=== PATIENT | female | born 1935 | race Caucasian/White ===

== ENCOUNTER 2024-09-16 11:45 | Emergency (ER) | payer MEDICARE, SELFPAY ==
--- NOTE | ~2024-09-16 | XR_ITS ---
EXAMINATION: XR chest 1V DATE: 09/16/2024 12:15 INDICATION: Stroke TECHNIQUE: frontal view of the chest was obtained. COMPARISON: None FINDINGS: Small lung volumes. No focal airspace opacities, pulmonary edema, pleural effusion or pneumothorax. T he cardiomediastinal silhouette is normal. Dual lead pacemaker seen with leads projecting over the ex pected locations of the right atrium and right ventricle. Thoracolumbar levoscoliosis with moderate s pondylosis. 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 IMPRESSION: 1. Small lung volumes. No acute cardiopulmonary disease. Reviewed, dictated and finalized at location A.
--- NOTE | ~2024-09-16 | CT_ITS ---
EXAMINATION: CT brain wo con DATE: 09/16/2024 12:12 INDICATION: Sudden onset right eye vision loss and weakness TECHNIQUE: Computed tomography (CT) of the head was performed without intravenous contrast. Sagittal and coronal reconstructions were performed. The mA was adjusted according to patient size. Iterative reconstruction technique was employed. The dose-length product was 605.33 mGy-cm. COMPARISON: None FINDINGS: No acute intracranial hemorrhage, acute infarction or abnormal extra axial fluid collection. There is extensive scattered white matter hypoattenuation consistent with chronic small vessel ischemic disea se. Symmetric prominence of the sulci, ventricles and subarachnoid spaces overlying the convexities c onsistent with moderate age-appropriate diffuse cerebral volume loss. No mass/mass effect. Changes of bilateral intraocular lens replacement. The orbits, paranasal sinuses and mastoid air cells are norm al. IMPRESSION: 1. No acute intracranial process. 2. Age-related changes including moderate diffuse volume loss and extensive scattered white matter hy poattenuation consistent with chronic small vessel ischemic disease. Reviewed, dictated and finalized at location A. IMPRESSION: 1. No acute intracranial process. 2. Age-related changes including moderate diffuse volume loss and extensive sca ttered white matter hypoattenuation consistent with chronic small vessel ischem ic disease.
--- NOTE | ~2024-09-16 | CT_ITS ---
EXAMINATION: CTA BRAIN/CAROTID DATE: 09/16/2024 12:14 INDICATION: Stroke with sudden onset right eye vision loss and right-sided weakness. TECHNIQUE: Computed tomographic angiography (CTA) of the head and neck was performed with 100 mL Omni paque-350 intravenous contrast. Multiplanar reconstructions and maximum intensity projection 3D-recon structions of the carotid arteries and of the intracranial arteries were created by the technologist on a separate workstation. Automated exposure control and iterative reconstruction technique were emp loyed.The dose-length product was 883.45 mGy-cm. COMPARISON: None. FINDINGS: Carotid arteries: Small amount of nonhemodynamically significant atherosclerotic plaque along the normal caliber aortic arch and great vessels arising from the arch. There is atherosclerotic plaque with 0% stenosis of th e right carotid bulb relative to normal distal artery lumen diameter (NASCET criteria). There is no e vident atherosclerotic plaque with 0% stenosis of the left carotid bulb relative to normal distal art travis lumen diameter. Bilateral intracranial vertebral arteries are codominant with moderate, 50-70% st enosis at the origin of the right vertebral artery. Calcified nodule in the left upper lobe consisten t with old granulomatous disease. 5 mm noncalcified nodule and mild atelectasis in the right upper lo be. Mild upper thoracic dextrocurvature, 4 mm anterolisthesis C7 on T1 and moderate to severe cervica l and upper thoracic spondylosis. Intracranial arteries Vertebral arteries are codominant. Scattered nonhemodynamically significant atherosclerotic plaque al wyatt the bilateral carotid siphons. There is no hemodynamically significant stenosis in the vertebral, basilar and internal carotid arteries. Both A1 and P1 segments are patent. There are no aneurysms id entified. Cerebral arterial arborization appears symmetric. No abnormally enhancing brain lesions id entified. IMPRESSION: 1. 0% stenosis of the right left carotid bulbs relative to normal distal artery lumen diameter (NASCE T criteria). 2. Moderate 50-70% stenosis at the origin of the right vertebral artery.. 3. Unremarkable cerebral CT angiogram with no hemodynamically significant stenosis, thrombosis or ane urysm. 4. 5 mm right upper lobe nodule. If the patient is low risk for lung cancer, no follow-up is needed. If the patient is high risk (i.e., history of smoking or asbestos or significant radiation exposure), optional follow-up chest CT could be considered at 12 months. Reviewed, dictated and finalized at location A. IMPRESSION: 1. 0% stenosis of the right left carotid bulbs relative to normal distal artery lumen diameter (NASCET criteria). 2. Moderate 50-70% stenosis at the origin of the right vertebral artery.. 3. Unremarkable cerebral CT angiogram with no hemodynamically significant steno sis, thrombosis or aneurysm. 4. 5 mm right upper lobe nodule. If the patient is low risk for lung cancer, no follow-up is needed. If the patient is high risk (i.e., history of smoking or asbestos or significant radiation exposure), optional follow-up chest CT could be considered at 12 months.
--- NOTE | 2024-09-16 11:51 | ECG_ITS ---
Test Date: 2024-09-16 12:57:29 Measurements Intervals [place] Rate: 71 P: 249 NC: 178 QRS: -46 QRSD: 110 T: 79 QT: 402 QTc: 440 Interpretive Statements ELECTRONIC ATRIAL PACEMAKER LEFT AXIS DEVIATION INTRAVENTRICULAR CONDUCTION DELAY LEFT VENTRICULAR HYPERTROPHY AND ST-T CHANGE INFERIOR INFARCT, AGE INDETERMINATE ABNORMAL ECG No previous ECG available for comparison Electronically Signed On 09-16-2024 15:14:15 CDT by Reilly Almaguer D.O.
[2024-09-16 11:54] LABS: Glucose Point of Care 132 mg/dl (65-105)
[2024-09-16 12:05] LABS: Basophils Absolute Auto 0.1 K/mm3 (0.0-0.1); Basophils Percent Auto 1.1 % (0.2-1.2); Eosinophils Absolute Auto 0.2 K/mm3 (0-0.3); Eosinophils Percent Auto 2.1 % (0-4.4); Hematocrit 49.3 % (37.0-47.0); Hemoglobin 15.2 g/dL (12.0-15.0); Immature Granulocyte Absolute 0.07 K/mm3 (0.00-0.031); Immature Granulocyte Percent A 0.8 % (0-0.5); Lymphocytes Absolute Auto 1.63 K/mm3 (0.9-3.2); Lymphocytes Percent Auto 19.1 % (18.3-44.2); Mean Corpuscular HGB Conc 30.8 g/dl (32-36); Mean Corpuscular Hemoglobin 28.3 pg (26-34); Mean Corpuscular Volume 91.6 fl (80-100); Mean Platelet Volume 10.2 fl (7.4-10.4); Monocytes Absolute Auto 0.4 K/mm3 (0.1-0.6); Monocytes Percent Auto 4.8 % (2.6-8.5); Neutrophils Absolute Auto 6.2 K/mm3 (1.3-6.7); Neutrophils Percent Auto 72.1 % (45.5-73.1); Platelet Count Result 163 k/mm3 (150-375); Red Blood Count 5.38 M/mm3 (4.2-5.4); Red Cell Distribution Width 13.5 % (11.5-14.5); White Blood Count 8.6 K/mm3 (4.5-10.0)
[2024-09-16 12:12] LABS: Estimated Glomerular Filt Rate 39
[2024-09-16 12:28] LABS: Alanine Aminotransferase 13 U/L (6-35); Albumin Level 3.9 g/dL (3.5-5.1); Alkaline Phosphatase 96 U/L (38-126); Anion Gap 10 mmol/L (4-12); Aspartate Amino Transferase 21 U/L (14-36); Bilirubin,Total 0.5 mg/dL (0.2-1.3); Blood Urea Nitrogen 17 mg/dL (7-17); Calcium 10.2 mg/dL (8.4-10.2); Carbon Dioxide 23 mmol/L (22-30); Chloride 104 mmol/L (98-107); Estimated Glomerular Filt Rate 42; Glucose 125 mg/dL (65-110); Potassium 3.8 mmol/L (3.4-5.0); Sodium 137 mmol/L (137-145); Total Protein 6.3 g/dL (6.3-8.2)
[2024-09-16 12:35] LABS: Prothrombin Time 13.6 Seconds (11.1-14.7)
[2024-09-16 12:36] LABS: Partial Thromboplastin Time 26.6 Seconds (22.3-36.8)
[2024-09-16 12:45] LABS: Troponin I < 0.012 ng/mL (0.000-0.034)
[2024-09-16 12:58] VITALS: BP 154/73; PULSE 71; RESP 17; O2SAT 96
--- NOTE | 2024-09-16 13:58 | ED.GENADULT ---
HPI - General Adult General Chief complaint: Eye Problems Stated complaint: Vision Changes start at 10am Time Seen by Provider: 09/16/24 11:56 History of Present Illness HPI narrative: This is a 88-year-old female with history of macular degeneration in for sudden vision loss in her right eye. Patient says that at 10:00 a.m. she lost all vision in her right eye. 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 She did have some given this occurred but she is currently pain-free. Patient denies any other complaints at this time such as slurred speech, difficulty speaking or weakness to any extremity. Related Data Allergies Allergy/AdvReac Type Severity Reaction Status Date / Time Sulfa (Sulfonamide Allergy Unknown Verified 04/09/16 16:32 Antibiotics) MOST PAIN MED Allergy Unknown Uncoded 04/09/16 16:32 TAPE AdvReac Unknown Uncoded 04/09/16 16:32 Exam Narrative: APPEARANCE: No apparent distress. Head: atraumatic. EYES: Extraocular eye movements intact, IOP 17 bilaterally, fluorescein stain negative for corneal abrasion or Avi sign Visual acuity: Blind in the left eye, movement in the right eye NOSE: Atraumatic NECK: Trachea midline RESPIRATORY: No increased rate of breathing CTAB CARDIOVASCULAR: RRR, ABDOMINAL: Non-distended MUSCULOSKELETAl: No obvious deformities NEURO: Alert. Cranial nerves 2-12 grossly intact. Sensation light touch, motor function cerebellar function intact for 4 extremities. Gait exam was normal. SKIN:: Warm, dry. Normal color PSYCHIATRIC: Normal affect Course Vital Signs Vital signs: Vital Signs Pulse Rate 71 09/16/24 12:58 Respiratory Rate 17 09/16/24 12:58 Blood Pressure 154/73 H 09/16/24 12:58 Pulse Oximetry 96 09/16/24 12:58 Pulse Rate 70 09/16/24 14:18 Respiratory Rate 15 09/16/24 14:18 Blood Pressure 146/70 H 09/16/24 14:18 Pulse Oximetry 97 09/16/24 14:18 Medical Decision Making [facility] Narrative Medical decision making narrative: -Course: 88-year-old female presenting with vision loss in her right eye. Last known normal was 10:00 a.m.. No other neurologic deficits on exam to indicate a stroke. Brain negative for bleed. CTA showed a 50% stenosis of the right vertebral artery but no other acute findings. IOP 17 bilaterally. Fluorescein stain unremarkable. Findings concerning for retinal pathology versus stroke. [facility] ophthalmology (Dr. Mckeon) consulted and the patient will be transferred for ophthalmology evaluation. Accepted by Dr. Romero in the ED. -DDX includes but is not limited to: Retinal artery occlusion, retinal vein occlusion, retinal detachment, retinal bleed, temporal arteritis, CVA NIH Stroke Scale/Score (NIHSS) from [email or web address] on 09/16/2024 All calculations should be rechecked by clinician prior to use RESULT SUMMARY: 3 points NIH Stroke Scale INPUTS: 1A: Level of consciousness ?> 0 = Alert; keenly responsive 1B: Ask month and age ?> 0 = Both questions right 1C: 'Blink eyes' & 'squeeze hands' ?> 0 = Performs both tasks 2: Horizontal extraocular movements ?> 0 = Normal 3: Visual alvarado ?> 3 = Patient is bilaterally blind (L eye is blind per patient) 4: Facial palsy ?> 0 = Normal symmetry 5A: Left arm motor drift ?> 0 = No drift for 10 seconds 5B: Right arm motor drift ?> 0 = No drift for 10 seconds 6A: Left leg motor drift ?> 0 = No drift for 5 seconds 6B: Right leg motor drift ?> 0 = No drift for 5 seconds 7: Limb Ataxia ?> 0 = No ataxia 8: Sensation ?> 0 = Normal; no sensory loss 9: Language/aphasia ?> 0 = Normal; no aphasia 10: Dysarthria ?> 0 = Normal 11: Extinction/inattention ?> 0 = No abnormality Vital Signs Vital Signs: Vital Signs Pulse Rate 71 09/16/24 12:58 Respiratory Rate 17 09/16/24 12:58 Blood Pressure 154/73 H 09/16/24 12:58 Pulse Oximetry 96 09/16/24 12:58 Pulse Rate 70 09/16/24 14:18 Respiratory Rate 15 09/16/24 14:18 Blood Pressure 146/70 H 09/16/24 14:18 Pulse Oximetry 97 09/16/24 14:18 Lab Data 09/16/24 11:55 09/16/24 12:05 Labs: Lab Results 09/16/24 09/16/24 09/16/24 Range/Units 11:52 11:55 11:57 WBC 8.6 (4.5-10.0) K/mm3 RBC 5.38 (4.2-5.4) M/mm3 Hgb 15.2 H (12.0-15.0) g/dL Hct 49.3 H (37.0-47.0) % MCV 91.6 (80-100) fl MCH 28.3 (26-34) pg MCHC 30.8 L (32-36) g/dl RDW 13.5 (11.5-14.5) % Plt Count 163 (150-375) k/mm3 MPV 10.2 (7.4-10.4) fl Immature Gran % (Auto) 0.8 H (0-0.5) % Neut % (Auto) 72.1 (45.5-73.1) % Lymph % (Auto) 19.1 (18.3-44.2) % Harris % (Auto) 4.8 (2.6-8.5) % Eos % (Auto) 2.1 (0-4.4) % Baso % (Auto) 1.1 (0.2-1.2) % Lymph # (Auto) 1.63 (0.9-3.2) K/mm3 Harris # (Auto) 0.4 (0.1-0.6) K/mm3 Eos # (Auto) 0.2 (0-0.3) K/mm3 Baso # (Auto) 0.1 (0.0-0.1) K/mm3 Abs Immat Gran (auto) 0.07 H (0.00-0.031) K/mm3 Absolute Neuts (auto) 6.2 (1.3-6.7) K/mm3 Absolute Nucleated RBC 0.000 (0.0-0.012) K/mm3 Nucleated RBC % 0.0 (0.0-0.2) % PT 13.6 (11.1-14.7) Seconds INR 1.0 APTT 26.6 (22.3-36.8) Seconds Sodium 137 (137-145) mmol/L Potassium 3.8 (3.4-5.0) mmol/L Chloride 104 (98-107) mmol/L Carbon Dioxide 23 (22-30) mmol/L Anion Gap 10 (4-12) mmol/L BUN 17 (7-17) mg/dL Creatinine 1.20 H (0.7-1.0) mg/dL Estim Creat Clear Calc Not Reportable Estimated GFR 42 L (59 - ) Glucose 125 H (65-110) mg/dL POC Capillary Glucose 132 H (65-105) mg/dl Calcium 10.2 (8.4-10.2) mg/dL Total Bilirubin 0.5 (0.2-1.3) mg/dL AST 21 (14-36) U/L ALT 13 (6-35) U/L Alkaline Phosphatase 96 (38-126) U/L Troponin I < 0.012 (0.000-0.034) ng/mL Total Protein 6.3 (6.3-8.2) g/dL Albumin 3.9 (3.5-5.1) g/dL 09/16/24 Range/Units 12:05 WBC (4.5-10.0) K/mm3 RBC (4.2-5.4) M/mm3 Hgb (12.0-15.0) g/dL Hct (37.0-47.0) % MCV (80-100) fl MCH (26-34) pg MCHC (32-36) g/dl RDW (11.5-14.5) % Plt Count (150-375) k/mm3 MPV (7.4-10.4) fl Immature Gran % (Auto) (0-0.5) % Neut % (Auto) (45.5-73.1) % Lymph % (Auto) (18.3-44.2) % Harris % (Auto) (2.6-8.5) % Eos % (Auto) (0-4.4) % Baso % (Auto) (0.2-1.2) % Lymph # (Auto) (0.9-3.2) K/mm3 Harris # (Auto) (0.1-0.6) K/mm3 Eos # (Auto) (0-0.3) K/mm3 Baso # (Auto) (0.0-0.1) K/mm3 Abs Immat Gran (auto) (0.00-0.031) K/mm3 Absolute Neuts (auto) (1.3-6.7) K/mm3 Absolute Nucleated RBC (0.0-0.012) K/mm3 Nucleated RBC % (0.0-0.2) % PT (11.1-14.7) Seconds INR APTT (22.3-36.8) Seconds Sodium (137-145) mmol/L Potassium (3.4-5.0) mmol/L Chloride (98-107) mmol/L Carbon Dioxide (22-30) mmol/L Anion Gap (4-12) mmol/L BUN (7-17) mg/dL Creatinine 1.30 H (0.7-1.0) mg/dL Estim Creat Clear Calc Not Reportable Estimated GFR 39 L (59 - ) Glucose (65-110) mg/dL POC Capillary Glucose (65-105) mg/dl Calcium (8.4-10.2) mg/dL Total Bilirubin (0.2-1.3) mg/dL AST (14-36) U/L ALT (6-35) U/L Alkaline Phosphatase (38-126) U/L Troponin I (0.000-0.034) ng/mL Total Protein (6.3-8.2) g/dL Albumin (3.5-5.1) g/dL Discharge Plan Discharge Clinical Impression: Right eye blindness of unknown category Patient Disposition: Acute Care Hospital Condition: Stable Patient Language: Malawian Follow-up/Referrals: PHYSICIAN,BASIC SCIENCES PROFESSOR [Primary Care Provider] -
[2024-09-16 14:18] VITALS: BP 146/70; PULSE 70; RESP 15; O2SAT 97
[2024-09-16 16:44] VITALS: BP 166/67; PULSE 72; RESP 18; O2SAT 95
[2024-09-16 17:00] VITALS: BP 157/51; PULSE 71; RESP 16; O2SAT 93
[2024-09-16 17:09] LABS: CRP. 1.6 mg/dL (<1.0)
== END 2024-09-16 17:15 | disposition short-term general hospital (02) ==
PROVIDERS: Emergency Provider Emergency Medicine
DX: H54.3 Unqualified visual loss, both eyes (principal); H35.30 Unspecified macular degeneration; I65.01 Occlusion and stenosis of right vertebral artery; R91.1 Solitary pulmonary nodule
CPT/HCPCS: 36415; 70450; 70496; 70498; 71045; 80053; 82948; 84484; 85025; 85610; 85730; 86140; 93005; 99285; Q9967